=== PATIENT | male | born 1940 | race Caucasian/White ===

== ENCOUNTER 2024-04-24 06:49 | Day surgery (SDC) | payer MEDICARE ==
[~2024-04-24] VITALS: Ht 176.5 cm; Wt 99.1 kg
[~2024-04-24 06:49] MED LIST: ACET325C6 PO; ALCL15CR; ASPI81TA52 PO; DICL100G59 TOP; FAMO40TA73 PO; FERR325T29; GLUC1TAB75 PO; HYDR12.55 PO; KETO15CR2 TOP; LEVO150T PO; NAPR220T67 PO
[2024-04-24 07:16] VITALS: BP 147/104; PULSE 84; RESP 21
[2024-04-24] MEDS ORDERED: LIDOcaine 2% Viscous 15ml cup ONE (07:25)
[2024-04-24] MEDS ORDERED: fentaNYL/PF 50MCG/1 ML 2ML syringe ONE (07:41)
[2024-04-24] MEDS ORDERED: MIDAZolam 1 MG/ML 5ML VIAL ONE (07:42)
[2024-04-24 08:05] VITALS: BP 119/77; PULSE 73; RESP 18; O2SAT 93
[2024-04-24 08:15] VITALS: BP 111/70; PULSE 82; RESP 22; O2SAT 93
[2024-04-24 08:25] VITALS: BP 114/75; PULSE 71; RESP 18; O2SAT 93
[2024-04-24 08:35] VITALS: BP 123/80; PULSE 76; RESP 20; O2SAT 95
== END 2024-04-24 08:44 | disposition home or self-care (01) ==
LOC: GI LAB 06:49
PROVIDERS: ATTEND Surgery
DX: K44.9 Diaphragmatic hernia without obstruction or gangrene (principal); K29.50 Unspecified chronic gastritis without bleeding; K20.90 Esophagitis, unspecified without bleeding; K25.9 Gastric ulcer, unspecified as acute or chronic, without hemorrhage or perforation
CPT/HCPCS: 43239; A4620; G0500; J2250; J3010; J7030; Z7512; 99152

== ENCOUNTER 2024-05-31 09:47 | Observation (INO) | payer MEDICARE ==
[2024-05-25 14:45] LABS: BASOPHILS # (AUTO) 0.1 X10'3 (0-0.2); BASOPHILS % (AUTO) 0.7 % (0-1); EOSINOPHILS # (AUTO) 0.3 X10'3 (0-0.9); EOSINOPHILS % (AUTO) 4.1 % (0-6); HEMATOCRIT 43.2 % (42.0-52.0); HEMOGLOBIN 14.3 g/dl (14.0-17.9); LYMPHOCYTES # (AUTO) 1.4 X10'3 (1.1-4.8); LYMPHOCYTES % (AUTO) 18.4 % (21-51); MEAN CORPUSCULAR HEMOGLOBIN 31.7 PG (27.0-31.0); MEAN PLATELET VOLUME 9.6 FL (7.4-10.4); MONOCYTES # (AUTO) 0.5 X10'3 (0-0.9); MONOCYTES % (AUTO) 7.3 % (2-12); NEUTROPHILS # (AUTO) 5.2 X10'3 (1.8-7.7); NEUTROPHILS % (AUTO) 69.5 % (42-75); PLATELET COUNT 180 X10'3 (140-440); RED CELL DISTRIBUTION WIDTH 16.1 % (11.5-14.5); WHITE BLOOD COUNT 7.5 X10'3 (4.5-11.0)
[2024-05-25 14:48] LABS: ALANINE AMINOTRANSFERASE 21 U/L (12-78); ALBUMIN 3.7 G/DL (3.4-5.0); ALBUMIN/GLOBULIN RATIO 1.1 (1.1-1.5); ALKALINE PHOSPHATASE 79 IU/L (46-116); ANION GAP 6 (8-16); ASPARTATE AMINO TRANSFERASE 21 U/L (10-37); BILIRUBIN,TOTAL 0.5 MG/DL (0.1-1.0); BLOOD UREA NITROGEN 20 MG/DL (7-18); BUN/CREATININE RATIO 13.7 (10.0-20.0); CALCIUM 9.1 MG/DL (8.5-10.1); CHLORIDE 108 MMOL/L (99-107); CREATININE 1.46 MG/DL (0.60-1.10); GLUCOSE 124 MG/DL (70-104); SODIUM 141 MMOL/L (135-145); TOTAL CARBON DIOXIDE 27.2 MMOL/L (24-32); TOTAL PROTEIN 7.1 G/DL (6.4-8.2); eGFR 46 ML/MIN
[2024-05-31] VITALS (22 sets, daily range): BP systolic 120–151; BP diastolic 63–92; PULSE 72–102; RESP 13–20; TEMP 97.4–98.5; O2SAT 91–97
[~2024-05-31] VITALS: Ht 177.8 cm; Wt 98.0 kg
[2024-05-31] MEDS: cefazolin 2gm/D5W 100mL 100 ML IV ONE (05:30)
[~2024-05-31 09:47] MED LIST changes: +ACET-1131 PO; -ACET325C6 PO; -ALCL15CR; -ASPI81TA52 PO; -DICL100G59 TOP; +FAMO20TA8 PO; -FAMO40TA73 PO; +GLUC-221 PO; -GLUC1TAB75 PO; -KETO15CR2 TOP; +TADA20TA70 PO
[2024-05-31] MEDS ORDERED: sevoflurane 250ml liquid IH ONE (14:09)
[2024-05-31] MEDS ORDERED: fentaNYL/PF 50MCG/1 ML 2ML syringe ONE (14:11)
[2024-05-31] MEDS ORDERED: propofol inj 20 ML IV ONE (14:11)
[2024-05-31] MEDS ORDERED: LIDOcaine 2% (20mg/ml) 5ml vial ONE (14:11)
[2024-05-31] MEDS ORDERED: midazolam 1 mg/ML 2ml injection ONE (14:11)
[2024-05-31] MEDS ORDERED: acetaminophen 1,000mg/100ml IV 100 ML IV ONE (14:22)
[2024-05-31] MEDS ORDERED: ondansetron/PF 4mg/2ml inj ONE (14:22)
[2024-05-31] MEDS ORDERED: albumin (Human) 5% 250ml 250 ML IV ONE (14:27)
[2024-05-31] MEDS: BUPIVAcaine 2.5mg/ml inj 50ml vial (contains preservative) SQ ONE (14:40)
[2024-05-31] MEDS ORDERED: rocuronium 10mg/ml inj IV ONE (15:54)
[2024-05-31] MEDS ORDERED: glycopyrrolate 0.2mg/ml inj ONE (17:57)
[2024-05-31] MEDS ORDERED: neostigmine methylsulfate 1 MG/ML 10ml vial ONE (17:57)
[2024-05-31] MEDS ORDERED: non-formulary drug (Tadalafil 1 TAB) PO PRN (18:15)
[2024-05-31] MEDS ORDERED: ondansetron/PF 4mg/2ml inj IV PRN (18:20)
[2024-05-31] MEDS ORDERED: normal saline 1000ml 1,000 ML IV SCH (18:20)
[2024-05-31] MEDS ORDERED: HYDROmorph/NS 0.2 mg/ml PCA 100 ML IV SCH (18:20)
[2024-05-31] MEDS: ringers solution, lacted 1,000 ML IV SCH (19:00)
[2024-05-31] MEDS: famotidine 20mg tablet PO ONE (19:00)
[2024-05-31] MEDS: LIDOcaine 1% 30ml preserv. free vial ONE (19:00)
[2024-05-31] MEDS: BUPIVAcaine/PF 2.5mg/ml (0.25%) 10ml vial ONE (19:00)
[2024-05-31] MEDS: HYDROmorph/NS 0.2 mg/ml PCA 100 ML IV SCH (19:24)
[2024-06-01] VITALS: BP 120/73; PULSE 90; O2SAT 92
[2024-06-01 06:00] VITALS: BP 130/81; PULSE 94; RESP 16; TEMP 98.2; O2SAT 95
[2024-06-01] MEDS: levoTHYROXINE 75mcg tablet PO SCH (07:46)
[2024-06-01] MEDS: enoxaparin 40mg/0.4ml syringe SQ SCH (07:47)
[2024-06-01 08:00] VITALS: RESP 16; O2SAT 95
[2024-06-01] MEDS ORDERED: oxyCODONE/APAP 5-325mg tablet PO PRN (09:00)
[2024-06-01] MEDS: oxyCODONE/APAP 5-325mg tablet PO ONE (09:00)
[2024-06-01] MEDS ORDERED: PER5325T PO (09:01)
[2024-06-01] MEDS: HYDROchlorothiazide 12.5mg capsule PO SCH (10:34)
[2024-06-01] MEDS: PCA WASTE DOCUMENTATION 1 MG ML MC SCH (11:30)
== END 2024-06-01 11:48 | disposition home or self-care (01) ==
LOC: PAS 09:47 → SUR 3N 18:26
PROVIDERS: ADMIT Surgery; ATTEND Surgery
DX: K44.9 Diaphragmatic hernia without obstruction or gangrene (principal); Z79.899 Other long term (current) drug therapy
CPT/HCPCS: 36415; 43282; 71045; 80053; 82948; 85025; 87081; C1781; G0378; J0131; J0690; J1100; J1170; J2250; J2371; J2405; J2704; J2710; J3010; J3490; J7120; P9045; A4340; A4615; A4618